=== PATIENT | female | born 1965 | race Caucasian/White ===

== ENCOUNTER → 2021-01-21 | Outpatient (CLI) | payer OTHER ==
[~2021-01-21] MED LIST: BACTRIM DS TAB1 EACH PO; NORCO 5-325 TA1 EACH PO
[2021-01-21 10:43] LABS: HEMOGLOBIN 16.5 gm/dl (12.3-15.3); RED BLOOD COUNT 5.3 M/UL (4.00-5.10); WHITE BLOOD COUNT 8.5 K/UL (4.5-11.0)
[2021-01-21 11:00] LABS: BUN/CREATININE RATIO 19 (0-10)
[2021-01-22 07:10] LABS: VITAMIN D, 25-HYDROXY 21.5 ng/mL (30.0-100.0)
[2021-01-22 09:13] LABS: RHEUMATOID ARTHRITIS FACTOR <10.0 IU/mL (0.0-13.9)
[2021-01-22 12:08] LABS: C-PEPTIDE, SERUM 7.1 ng/mL (1.1-4.4)
== END ==
LOC: LAB 09:33
PROVIDERS: Family Medicine
DX: E11.9 Type 2 diabetes mellitus without complications (principal); I10 Essential (primary) hypertension; E55.9 Vitamin D deficiency, unspecified; Z13.220 Encounter for screening for lipoid disorders
CPT/HCPCS: 36415; 80053; 80061; 82043; 84439; 84443; 84481; 84550; 84681; 85027; 85652; 86038; 86431

== ENCOUNTER 2021-02-06 16:45 | Emergency (ER) | payer OTHER ==
[2021-02-06 18:03] LABS: HEMOGLOBIN 17.3 gm/dl (12.3-15.3); RED BLOOD COUNT 5.51 M/UL (4.00-5.10); WHITE BLOOD COUNT 9.2 K/UL (4.5-11.0)
[2021-02-06 18:25] LABS: BUN/CREATININE RATIO 20 (0-10)
== END 2021-02-06 20:41 | disposition home or self-care (01) ==
LOC: ER1 16:45
PROVIDERS: Emergency Medicine
DX: R10.12 Left upper quadrant pain (principal); D69.6 Thrombocytopenia, unspecified; Z87.442 Personal history of urinary calculi; Z90.89 Acquired absence of other organs
CPT/HCPCS: 80053; 81001; 83690; 85025; 85379; 96374; 96375; 99284; J2270; J2405

== ENCOUNTER → 2021-07-14 | Outpatient (CLI) | payer OTHER | LOC: KOH-I 13:30 | DX: F17.210 Nicotine dependence, cigarettes, uncomplicated (principal); R91.8 Other nonspecific abnormal finding of lung field | CPT/HCPCS: 71271 ==

== ENCOUNTER → 2021-11-30 | Outpatient (CLI) | payer OTHER ==
[2021-11-30 08:59] LABS: HEMOGLOBIN 16.6 gm/dl (12.3-15.3); RED BLOOD COUNT 5.3 M/UL (4.00-5.10); WHITE BLOOD COUNT 11.2 K/UL (4.5-11.0)
[2021-12-01 08:15] LABS: A/G RATIO 1.6 (1.2-2.2); ALKALINE PHOSPHATASE, S 168 IU/L (44-121); ALT (SGPT) 17 IU/L (0-32); AST (SGOT) 42 IU/L (0-40); BILIRUBIN, TOTAL 0.3 mg/dL (0.0-1.2); BUN 16 mg/dL (6-24); BUN/CREATININE RATIO 22 (9-23); CALCIUM, SERUM 9.7 mg/dL (8.7-10.2); CARBON DIOXIDE, TOTAL 19 mmol/L (20-29); CHLORIDE, SERUM 99 mmol/L (96-106); CHOLESTEROL, TOTAL 233 mg/dL (100-199); CREATININE, SERUM 0.74 mg/dL (0.57-1.00); EGFR IF AFRICN AM 104 (>59); EGFR IF NONAFRICN AM 90 (>59); GLOBULIN, TOTAL 2.7 g/dL (1.5-4.5); GLUCOSE, SERUM 295 mg/dL (65-99); HDL CHOLESTEROL 37 mg/dL (>39); LDL CHOLESTEROL CALC 140 mg/dL (0-99); LDL/HDL RATIO 3.8 ratio (0.0-3.2); MAGNESIUM 2.1 mg/dL (1.6-2.3); POTASSIUM, SERUM 4.6 mmol/L (3.5-5.2); PROTEIN, TOTAL, SERUM 7.1 g/dL (6.0-8.5); SODIUM, SERUM 137 mmol/L (134-144); T. CHOL/HDL RATIO 6.3 ratio (0.0-4.4); TRIGLYCERIDES 306 mg/dL (0-149)
[2021-12-01 09:15] LABS: VITAMIN D, 25-HYDROXY 20.1 ng/mL (30.0-100.0)
[2021-12-01 11:15] LABS: CREATININE, URINE 59.8 mg/dL (Not Estab.)
== END ==
LOC: NM 07:57
PROVIDERS: Family Medicine
DX: R11.0 Nausea (principal); R10.13 Epigastric pain; E11.9 Type 2 diabetes mellitus without complications; E55.9 Vitamin D deficiency, unspecified; E03.9 Hypothyroidism, unspecified; Z79.899 Other long term (current) drug therapy; R93.3 Abnormal findings on diagnostic imaging of other parts of digestive tract
CPT/HCPCS: 36415; 78264; 80053; 80061; 82043; 82570; 82607; 83735; 84439; 84443; 85027; A9541

== ENCOUNTER → 2022-03-03 | Outpatient (CLI) | payer OTHER ==
[2022-03-03 12:57] LABS: BUN/CREATININE RATIO 19 (0-10)
[2022-03-04 08:15] LABS: CREATININE, URINE 99.3 mg/dL (Not Estab.)
== END ==
LOC: LAB 11:34
PROVIDERS: Family Medicine
DX: E11.9 Type 2 diabetes mellitus without complications (principal); E78.2 Mixed hyperlipidemia; E55.9 Vitamin D deficiency, unspecified
CPT/HCPCS: 36415; 80053; 80061; 82043; 82570; 83036; 83735

== ENCOUNTER 2022-03-06 13:39 | Emergency (ER) | payer OTHER ==
[2022-03-06 14:27] LABS: BUN/CREATININE RATIO 20 (0-10)
[2022-03-06 15:36] LABS: HEMOGLOBIN 16.8 gm/dl (12.3-15.3); RED BLOOD COUNT 5.28 M/UL (4.00-5.10); WHITE BLOOD COUNT 11.4 K/UL (4.5-11.0)
== END 2022-03-06 16:15 | disposition home or self-care (01) ==
LOC: ER1 13:39
PROVIDERS: Emergency Medicine
DX: S29.012A Strain of muscle and tendon of back wall of thorax, initial encounter (principal); E11.9 Type 2 diabetes mellitus without complications; X58.XXXA Exposure to other specified factors, initial encounter
CPT/HCPCS: 71045; 80053; 81001; 82550; 82553; 84484; 85025; 93005; 99284

== ENCOUNTER → 2022-05-26 | Outpatient (CLI) | payer OTHER ==
[2022-05-26 13:14] LABS: BUN/CREATININE RATIO 18 (0-10)
== END ==
LOC: LAB 11:32
PROVIDERS: Family Medicine
DX: E11.9 Type 2 diabetes mellitus without complications (principal); E78.2 Mixed hyperlipidemia; E03.9 Hypothyroidism, unspecified; R31.29 Other microscopic hematuria
CPT/HCPCS: 36415; 80053; 80061; 81001; 83036; 83735; 84439; 84443; 87086

== ENCOUNTER → 2022-06-08 | Outpatient (CLI) | payer OTHER | LOC: MAMO 08:30 | DX: Z12.31 Encounter for screening mammogram for malignant neoplasm of breast (principal) | CPT/HCPCS: 77063; 77067 ==